=== PATIENT | female | born 1985 | race Caucasian/White ===

== ENCOUNTER 2017-08-17 15:11 | Outpatient (CLI) | payer OTHER ==
--- NOTE | 2017-08-17 16:18 | History and Physical ---
History & Physical Date of Service August 17, 2017. Complaint Decreased Movement History of Present Illness Source: patient The patient is a 32-year-old 2 para 1 with an EDC of 29 October 2017 at 30 + weeks gestational age who presents to labor and delivery from the emergency room for evaluation of decreased movement. The patient states that she has not been feeling as much movement for the last 2-3 days. Patient is in town visiting her mother. Patient states that her course has been unremarkable. She has had ultrasounds which confirm her EDC with normal anatomy. The patient had cell free DNA screening which was within normal limits. REBEAMER History Unremarkable Past Medical History Depression Past Surgical History Foot surgery Family History Noncontributory Review of Systems Constitutional: No fever, No chills, No sweats, No weight loss, No weakness, No fatigue, No problem reported Abdomen: No pain, No nausea, No vomiting, No diarrhea, No constipation, No GI bleeding, No problem reported Genitourinary - Female: No dysuria, No urinary frequency, No urinary urgency, No urinary incontinence, No urinary retention, No hematuria, No dysmenorrhea, No menorrhagia, No metrorrhagia, No rash, No vaginal bleeding, No vaginal discharge, No vaginal itching, No vulvodynia, No , No problem reported Physical Exam General Appearance: WD/WN Head: normocephalic Neck: supple Abdomen / GI: + pertinent finding (Gravid, positive heart tones, no palpable contractions) Extremities: no calf tenderness Monitoring External Monitor: Category 1, reactive NST Assessment and Plan 30+ weeks gestational age decreased movement -NST reactive. -Discussed with patient, all questions answered, patient reassured -Follow-up with her primary associate professor of anthropology for continued care
== END 2017-08-17 16:14 | disposition home or self-care (01) ==
LOC: C.OPB 15:11 → C.LD 15:11 → C.OPB 16:14
PROVIDERS: ATTEND Obstetrics & Gynecology
DX: O36.8130 Decreased fetal movements, third trimester, not applicable or unspecified (principal); Z3A.00 Weeks of gestation of pregnancy not specified

== ENCOUNTER 2017-12-06 19:39 | Emergency (ER) | payer OTHER ==
[~2017-12-06] VITALS: Ht 167.6 cm; Wt 73.3 kg
[2017-12-06 19:41] VITALS: Ht 167.6 cm; Wt 73.3 kg
[2017-12-06] MEDS ORDERED: SODIUM CHLORIDE 0.9% 500ML 500 ML IV STA (19:55)
[2017-12-06] MEDS ORDERED: PROCHLORPERAZINE 5 MG/ML 2 ML VIAL IV STA (19:55)
[2017-12-06] MEDS ORDERED: KETOROLAC TROMETHAMINE 30 MG/ML VIAL IV STA (19:55)
[2017-12-06] MEDS ORDERED: ACETAMINOPHEN 500 MG TAB PO STA (19:55)
[2017-12-06] MEDS ORDERED: DiphenhydrAMINE HCL 50 MG/ML VIAL IV STA (19:55)
--- NOTE | 2017-12-06 19:55 | EMERGENCY ROOM VISIT NOTE ---
History Report prepared by Filipe: Jeromy Hazel Under the Supervision of: Dr. Anatoliy Odonnell M.D. First contact with patient: 19:45 Chief Complaint: ANXIETY Stated Complaint: ANXIETY History of Present Illness The patient is a 32 year old white female with a past medical history of migraines, severe anxiety, HTN who presents to the ED with a cc of constant, severe, anxiety beginning a few days ago. Positive stress of moving and a child. Negative alcohol use, drug use, tobacco use. Pt states she just moved here from [place] and is trying to find a place to live. She reports she is currently living with her mother and her two children. Pt notes she just recently had her second baby. She states it was a vaginal and complication free. Pt reports she takes BuSpar and Neurontin. She notes her chest feels like pins and needles are in it, and it is getting warm. Pt states a surgical history for kidney stones and breast implants. Source of History: patient Onset: a few days ago Symptom Intensity: severe Quality: other (anxiety) Timing: constant Note: Associated symptoms: stress of moving and a child Review of Systems See HPI for pertinent positives and negatives. A total of ten systems were reviewed and were otherwise negative. Past Medical & Surgical Medical Problems: (1) Decreased movement affecting management of in third trimester Family History Patient reports no known family medical history. Social History Smoking Status: Never Smoker Smokeless Tobacco Use: No Alcohol Use: none Drug Use: none Marital Status: single Housing Status: lives with family Occupation Status: unemployed Current/Historical Medications Scheduled Buspirone Hcl (Buspirone Hcl), 30 MG PO BID Gabapentin (Neurontin), 1,200 MG PO TID Hydroxyzine Pamoate (Vistaril), 1 CAP PO TID Allergies Coded Allergies: No Known Allergies (Unverified , 12/06/17) Physical Exam Vital Signs Date Time Temp Pulse Resp B/P (MAP) Pulse Ox O2 Delivery O2 Flow Rate FiO2 12/06/17 21:57 36.9 67 20 118/82 98 12/06/17 21:20 69 20 120/83 98 Room Air 12/06/17 19:41 36.9 98 18 148/107 97 Room Air Physical Exam GENERAL: Awake, alert, well-appearing, NAD HENT: Normocephalic, atraumatic. EYES: Normal conjunctiva. Sclera non-icteric. PERRL. No anisocoria. NECK: Supple. No nuchal rigidity. FROM. RESPIRATORY: CTAB, no rhonchi, wheezing, crackles CARDIAC: RRR, no MRG ABDOMEN: Soft, NTND, BS+ MSK: No chest wall TTP, no LE edema NEURO: GCS 15, CN 2-12 intact, moves all 4s on command SKIN: No rash or jaundice noted. PSYCH: No SI, HI, or AVH. Rapid speech. Medical Decision & Procedures Laboratory Results 12/06/17 20:12 Red Blood Count 4.76, Mean Corpuscular Volume 94.3, Mean Corpuscular Hemoglobin 31.5, Mean Corpuscular Hemoglobin Concent 33.4, Mean Platelet Volume 10.1, Neutrophils (%) (Auto) 52.7, Lymphocytes (%) (Auto) 37.8, Monocytes (%) (Auto) 5.6, Eosinophils (%) (Auto) 3.1, Basophils (%) (Auto) 0.5, Neutrophils # (Auto) 4.13, Lymphocytes # (Auto) 2.96, Monocytes # (Auto) 0.44, Eosinophils # (Auto) 0.24, Basophils # (Auto) 0.04 12/06/17 20:12 Test 12/06/17 20:12 12/06/17 21:07 White Blood Count 7.83 K/uL (4.8-10.8) Red Blood Count 4.76 M/uL (4.2-5.4) Hemoglobin 15.0 g/dL (12.0-16.0) Hematocrit 44.9 % (37-47) Mean Corpuscular Volume 94.3 fL (80-100) Mean Corpuscular Hemoglobin 31.5 pg (25-34) Mean Corpuscular Hemoglobin Concent 33.4 g/dl (32-36) Platelet Count 201 K/uL (130-400) Mean Platelet Volume 10.1 fL (7.4-10.4) Neutrophils (%) (Auto) 52.7 % Lymphocytes (%) (Auto) 37.8 % Monocytes (%) (Auto) 5.6 % Eosinophils (%) (Auto) 3.1 % Basophils (%) (Auto) 0.5 % Neutrophils # (Auto) 4.13 K/uL (1.4-6.5) Lymphocytes # (Auto) 2.96 K/uL (1.2-3.4) Monocytes # (Auto) 0.44 K/uL (0.11-0.59) Eosinophils # (Auto) 0.24 K/uL (0-0.5) Basophils # (Auto) 0.04 K/uL (0-0.2) RDW Standard Deviation 40.6 fL (36.4-46.3) RDW Coefficient of Variation 11.9 % (11.5-14.5) Immature Granulocyte % (Auto) 0.3 % Immature Granulocyte # (Auto) 0.02 K/uL (0.00-0.02) Anion Gap 10.0 mmol/L (3-11) Est Creatinine Clear Calc Drug Dose 75.9 ml/min Estimated GFR () 78.1 Estimated GFR (Non- 67.4 BUN/Creatinine Ratio 13.9 (10-20) Calcium Level 9.0 mg/dl (8.5-10.1) Urine Color YELLOW Urine Appearance CLEAR (CLEAR) Urine pH 5.5 (4.5-7.5) Urine Specific [place] 1.009 (1.000-1.030) Urine Protein NEG (NEG) Urine Glucose (UA) NEG (NEG) Urine Ketones NEG (NEG) Urine Occult Blood NEG (NEG) Urine Nitrite NEG (NEG) Urine Bilirubin NEG (NEG) Urine Urobilinogen NEG (NEG) Urine Leukocyte Esterase TRACE (NEG) Urine WBC (Auto) 5-10 /hpf (0-5) Urine RBC (Auto) 0-4 /hpf (0-4) Urine Hyaline Casts (Auto) 0 /lpf (0-5) Urine Epithelial Cells (Auto) >30 /lpf (0-5) Urine Bacteria (Auto) 1+ (NEG) Laboratory results reviewed by me Medications Administered Medications (Trade) Dose Ordered Sig/Roberto Route Start Time Stop Time Status Last Admin Dose Admin Prochlorperazine Edisylate (Compazine Inj) 10 mg NOW STAT IV 12/06/17 19:55 12/06/17 19:58 DC 12/06/17 20:16 10 MG Ketorolac Tromethamine (Toradol Inj) 30 mg NOW STAT IV 12/06/17 19:55 12/06/17 19:58 DC 12/06/17 19:55 30 MG Acetaminophen (Tylenol Tab) 1,000 mg NOW STAT PO 12/06/17 19:55 12/06/17 19:58 DC 12/06/17 20:14 1,000 MG Diphenhydramine HCl (Benadryl Inj) 25 mg NOW STAT IV 12/06/17 19:55 12/06/17 19:58 DC 12/06/17 20:15 25 MG Sodium Chloride 500 ml @ 500 mls/hr Q1H STAT IV 12/06/17 19:55 12/06/17 20:54 DC 12/06/17 19:55 500 MLS/HR Lorazepam (Ativan Inj) 0.5 mg NOW STAT IV 12/06/17 21:11 12/06/17 21:12 DC 12/06/17 21:19 0.5 MG ED Course 1950: The patient was evaluated in room C07. A complete history and physical exam was performed. 2007: I reevaluated the patient. She is still anxious. Psych case management will assist in outpatient therapy. 2138: I reevaluated the patient. Discussed results and discharge instructions: she verbalized understanding and agreement. The patient is ready for discharge. Medical Decision The patient is a 32 year old white female with a past medical history of migraines, severe anxiety, HTN who presents to the ED with a cc of constant, severe, anxiety, beginning a few days ago. Nursing notes reviewed. Ancillary studies and prior records reviewed. Differential diagnosis: Etiologies such as migraine headache, meningitis, sinusitis, CO exposure, ICH, SAH, infection, tumor, headache, sinus thrombosis, arterial dissection, preeclampsia, as well as others were entertained. Patient was seen and evaluated at the bedside. Patient was complaining of some anxiety and headache focal neuro deficits. The patient was recently and did state that she recently moved from [place] and is currently living with her parents at [facility]. The patient does take maintenance medications. Patient did have blood work completed along with urinalysis. The patient was given medications for headache. Patient blood work is fairly unremarkable. Urinalysis does show lots of epithelial cells. Patient denies any urinary symptoms. Given the patient's lack of vision complaints and no proteinuria or persistent hypertension less likely preeclampsia. The patient was given some Ativan. Upon reassessment the patient is resting comfortably. I did talk to the patient further and the patient was told that she may follow-up as an outpatient as the psych transplant case manager gave her some outpatient resources. The patient was given some hydroxyzine as needed for anxiety as an outpatient. Patient was given strict follow-up, discharge, and return precautions. All questions were answered. Patient was deemed suitable for outpatient follow-up at this time. Patient agreed with the plan of care and was safely discharged home. Medication Reconcilliation Current Medication List: was personally reviewed by me Blood Pressure Screening Patient's blood pressure: Normal blood pressure Blood pressure disposition: Did not require urgent referral Impression Primary Impression: Acute anxiety Additional Impression: Headache Scribe Attestation The scribe's documentation has been prepared under my direction and personally reviewed by me in its entirety. I confirm that the note above accurately reflects all work, treatment, procedures, and medical decision making performed by me. Departure Information Dispostion Home / Self-Care Prescriptions Hydroxyzine Pamoate (VISTARIL) 25 Mg Cap 1 CAP PO TID for 10 Days, #30 CAP 0 Refills Prov: Anatoliy Odonnell M.D. 12/06/17 Referrals No Doctor, Assigned (PCP) Forms HOME CARE DOCUMENTATION FORM, IMPORTANT VISIT INFORMATION Patient Instructions Anxiety Body Response, Anxiety Disorder, My [facility] Additional Instructions Please return to the emergency department if you have worsening or recurrent symptoms not amenable to at-home treatment. Please call for a follow-up appointment with her primary care physician. Please take your medications as prescribed. If you have other concerns and/or complaints please feel free to also call your primary care physician's office or return the ED for further evaluation, management, and treatment. You may take 600 mg Ibuprofen every 6 hours as needed for pain/fever with food unless told by your physician not to take NSAIDs. You may take tylenol 650 mg every 6 hours as needed for pain/fever unless told by your physician to not take it or have liver problems. You may take motrin and tylenol separately or at the same time. Take your medications as prescribed. If taking an antibiotic consider taking a probiotic and/or eating yogurt, but at the least, please take with food as it can cause upset stomach. You have been examined and treated today on an emergency basis only. This is not a substitute for, or an effort to provide, complete comprehensive medical care. It is impossible to recognize and treat all injuries or illnesses in a single emergency department visit. It is therefore important that you follow up closely with [facility], your PCP, and/or your specialist(s). Call as soon as possible for an appointment. Thank you for your time and consideration. I look forward to speaking with you again soon. Please don't hesitate to call us if you have any questions. Problem Qualifiers Additional Impression: Headache Headache type: unspecified Headache chronicity pattern: acute headache Intractability: not intractable Qualified Codes: R51 - Headache
[2017-12-06 20:39] LABS: BASO % 0.5 %; BASO ABS # 0.04 K/uL (0-0.2); EOS % 3.1 %; EOS ABS # 0.24 K/uL (0-0.5); HEMATOCRIT 44.9 % (37-47); IG# 0.02 K/uL (0.00-0.02); LYMPH % 37.8 %; LYMPH ABS # 2.96 K/uL (1.2-3.4); MEAN CELL VOLUME 94.3 fL (80-100); MEAN CORPUSCULAR HEMOGLOBIN 31.5 pg (25-34); MEAN CORPUSCULAR HGB CONC 33.4 g/dl (32-36); MEAN PLATELET VOLUME 10.1 fL (7.4-10.4); MONO % 5.6 %; MONO ABS # 0.44 K/uL (0.11-0.59); NEUT % 52.7 %; NEUT ABS # 4.13 K/uL (1.4-6.5); PLATELET COUNT 201 K/uL (130-400); RED CELL DISTRIBUTION WIDTH CV 11.9 % (11.5-14.5); RED CELL DISTRIBUTION WIDTH SD 40.6 fL (36.4-46.3); WHITE BLOOD COUNT 7.83 K/uL (4.8-10.8)
[2017-12-06 20:53] LABS: CREATININE 1.08 mg/dl (0.60-1.20); POTASSIUM 3.8 mmol/L (3.5-5.1)
[2017-12-06] MEDS ORDERED: LORAZEPAM 2 MG/ML 1 ML VIAL IV STA (21:11)
[2017-12-06] MEDS ORDERED: GABA600T PO (21:18)
[2017-12-06] MEDS ORDERED: BUSP30TA2 PO (21:18)
[2017-12-06] MEDS ORDERED: HYDR25CA PO (21:51)
[2017-12-06 21:57] VITALS: BP 118/82; PULSE 67; TEMP 36.9; O2SAT 98
== END 2017-12-06 21:58 | disposition home or self-care (01) ==
LOC: C.EDB 19:40 → C.EDC 21:58
DX: F41.9 Anxiety disorder, unspecified (principal); R51 Headache; I10 Essential (primary) hypertension; Z87.442 Personal history of urinary calculi; Z98.82 Breast implant status; Z79.899 Other long term (current) drug therapy